=== PATIENT | male | born 1980 | race Caucasian/White ===

== ENCOUNTER 2019-01-22 15:49 | Emergency (ER) | payer OTHER ==
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
== END 2019-01-22 17:15 | disposition home or self-care (01) ==
LOC: ER 15:49
DX: M25.571 Pain in right ankle and joints of right foot (principal); Z88.5 Allergy status to narcotic agent
CPT/HCPCS: 99283

== ENCOUNTER 2019-02-16 13:09 | Emergency (ER) | payer OTHER ==
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
== END 2019-02-16 14:26 | disposition home or self-care (01) ==
LOC: ER 13:09
DX: S16.1XXA Strain of muscle, fascia and tendon at neck level, initial encounter (principal); S29.012A Strain of muscle and tendon of back wall of thorax, initial encounter; V47.5XXA Car driver injured in collision with fixed or stationary object in traffic accident, initial encounter; G40.909 Epilepsy, unspecified, not intractable, without status epilepticus; Z88.5 Allergy status to narcotic agent
CPT/HCPCS: 70450; 71250; 72125; 99284